=== PATIENT | female | born 1930 | race Caucasian/White ===

== ENCOUNTER 2017-08-02 10:40 | Observation (INO) | payer MEDICARE, BC ==
[2017-08-02] MEDS ORDERED: Sodium Chloride 0.9% 10 ML Syringe FLUSH PRN (10:52)
[2017-08-02] MEDS ORDERED: Ondansetron 4 MG/2 ML SDV IVPUSH ONE (11:16)
[2017-08-02] MEDS ORDERED: Meclizine 25 MG Tab PO ONE (11:16)
[2017-08-02] MEDS ORDERED: dimenhyDRINATE 50 MG Tab PO ONE (11:16)
[2017-08-02] MEDS ORDERED: Lactated Ringers 1,000 ML IV SCH (11:30)
[2017-08-02 12:14] LABS: CHLORIDE,CL 100 mmol/L (98-107); SODIUM,NA 137 mmol/L (136-145)
[2017-08-02] MEDS ORDERED: dimenhyDRINATE 50 MG Tab PO PRN (14:06)
[2017-08-02] MEDS ORDERED: Ondansetron 4 MG/2 ML SDV IVPUSH PRN (14:09)
[2017-08-02] MEDS: Lactated Ringers 1,000 ML IV SCH (15:25)
--- NOTE | 2017-08-02 17:58 | EDM.PDOC ---
ED HPI GENERAL MEDICAL PROBLEM - General Chief Complaint: General Stated Complaint: dizzy, forgetfulness Time Seen by Provider: 08/02/17 10:52 Source of Information: Reports: Patient, Family History Limitations: Reports: No Limitations - History of Present Illness INITIAL COMMENTS - FREE TEXT/NARRATIVE: PtSharon presents to ER with complaints of vertigo. She has been experiencing this for several months but it is worse today. She denies striking her head. She has been seen by ENT and they suggested vestibular therapy for BPPV. She has so far refused to do it, as she doesn't want to "move her head and get dizzy". She denies any chest pain or shortness of breath. No weakness. Denies any blurred vision, difficulty with speech or ambulation. Location: Reports: Generalized - Related Data Allergies Allergy/AdvReac Type Severity Reaction Status Date / Time adhesive tape Allergy Other Verified 08/02/17 10:55 azithromycin Allergy Other Verified 08/02/17 10:52 cephalexin Allergy Other Verified 08/02/17 10:55 Cephalosporins Allergy Other Verified 08/02/17 13:14 ciprofloxacin Allergy Other Verified 08/02/17 10:55 codeine Allergy Other Verified 08/02/17 10:55 doxycycline Allergy Other Verified 08/02/17 10:55 erythromycin base Allergy Other Verified 08/02/17 10:55 hydrocodone Allergy Other Verified 08/02/17 10:55 hydrocortisone Allergy Other Verified 08/02/17 10:55 lidocaine Allergy Other Verified 08/02/17 10:55 metformin Allergy Other Verified 08/02/17 10:55 oxymetazoline Allergy Other Verified 08/02/17 10:55 Penicillins Allergy Other Verified 08/02/17 10:55 piroxicam Allergy Other Verified 08/02/17 10:55 sulfamethoxazole Allergy Other Verified 08/02/17 10:55 zolpidem Allergy Other Verified 08/02/17 10:55 Home Meds: Home Meds Levothyroxine [Sythroid] 100 mcg PO DAILY 08/02/17 [History] Lisinopril/Hydrochlorothiazide [Zestoretic 20-12.5 mg Tablet] 12.5 mg PO DAILY 08/02/17 [History] Metoprolol Tartrate 50 mg PO BID 08/02/17 [History] Potassium Chloride 10 meq PO BID 08/02/17 [History] Trospium [Sanctura] 20 mg PO BID 08/02/17 [History] atorvaSTATin [Lipitor] 0.5 tab PO DAILY 08/02/17 [History] Past Medical History HEENT History: Reports: Allergic Rhinitis Cardiovascular History: Reports: High Cholesterol, Hypertension Genitourinary History: Reports: Other (See Below) Other Genitourinary History: Stage III chronic kidney disease Neurological History: Reports: Vertigo Other Neuro History: benign paroxysmal positional vertigo Psychiatric History: Reports: Anxiety, Depression Endocrine/Metabolic History: Reports: Diabetes, Type II, Hypothyroidism Social & Family History - Tobacco Use Smoking Status *Q: Never Smoker Second Hand Smoke Exposure: No - Caffeine Use Caffeine Use: Reports: Coffee - Recreational Drug Use Recreational Drug Use: No ED ROS GENERAL - Review of Systems Review Of Systems: See Below Constitutional: Reports: No Symptoms HEENT: Reports: No Symptoms Respiratory: Reports: No Symptoms Cardiovascular: Reports: No Symptoms Endocrine: Reports: No Symptoms GI/Abdominal: Reports: No Symptoms : Reports: No Symptoms Musculoskeletal: Reports: No Symptoms Skin: Reports: No Symptoms Neurological: Reports: No Symptoms Psychiatric: Reports: No Symptoms Hematologic/Lymphatic: Reports: Other Immunologic: Reports: No Symptoms ED EXAM, GENERAL - Physical Exam Exam: See Below Exam Limited By: No Limitations General Appearance: Alert, WD/WN, No Apparent Distress Eye Exam: Bilateral Eye: EOMI, Normal Fundi, Normal Inspection, PERRL Ears: Normal External Exam, Normal Canal, Hearing Grossly Normal, Normal TMs Ear Exam: Bilateral Ear: Auricle Normal, Canal Normal, TM normal Nose: Normal Inspection, Normal Mucosa, No Blood Throat/Mouth: Normal Inspection, Normal Lips, Normal Teeth, Normal Gums, Normal Oropharynx, Normal Voice, No Airway Compromise Head: Atraumatic, Normocephalic Neck: Normal Inspection, Supple, Non-Tender, Full Range of Motion Respiratory/Chest: No Respiratory Distress, Lungs Clear, Normal Breath Sounds, No Accessory Muscle Use, Chest Non-Tender Cardiovascular: Normal Peripheral Pulses, Regular Rate, Rhythm, No Edema, No Gallop, No JVD, No Murmur, No Rub Peripheral Pulses: 4+: Radial (L), Radial (R), Femoral (L), Femoral (R) GI/Abdominal: Normal Bowel Sounds, Soft, Non-Tender, No Organomegaly, No Distention, No Abnormal Bruit, No Mass (Female) Exam: Deferred Rectal (Female) Exam: Deferred Back Exam: Normal Inspection, Full Range of Motion, NT Extremities: Normal Inspection, Normal Range of Motion, Non-Tender, Normal Capillary Refill, No Pedal Edema Neurological: Alert, Oriented, CN II-XII Intact, Normal Cognition, Normal Gait, Normal Reflexes, No Motor/Sensory Deficits Psychiatric: Normal Affect, Normal Mood Skin Exam: Warm, Dry, Intact, Normal Color, No Rash Lymphatic: No Adenopathy EKG INTERPRETATION Rhythm: NSR [place]set: Normal P-Wave: Present QRS: Normal ST-T: Normal QT: Normal Course - Vital Signs Last Recorded V/S: Last Vital Signs Temp 36.7 C 08/02/17 16:22 Pulse 96 08/02/17 16:22 Resp 16 08/02/17 16:22 BP 140/70 08/02/17 16:22 Pulse Ox 93 L 08/02/17 16:22 - Orders/Labs/Meds Orders: Active Orders 24 hr Category Date Time Status Chest 1V Frontal [CR] Stat Exams 08/02/17 11:15 Taken Head wo Cont [CT] Stat Exams 08/02/17 11:14 Taken Sodium Chloride 0.9% [Saline Flush] Med 08/02/17 10:52 Active 10 ml FLUSH ASDIRECTED PRN Peripheral IV Insertion Adult [OM.PC] Routine Oth 08/02/17 11:13 Ordered Medication Orders Dimenhydrinate (Driminate) 50 mg PO Q4H PRN PRN Reason: Dizziness Lactated Ringer's (Ringers, Lactated) 1,000 mls @ 75 mls/hr IV ASDIRECTED [facility] Last Admin: 08/02/17 15:25 Dose: 75 mls/hr Meclizine HCl (Antivert) 25 mg PO BID PRN PRN Reason: Dizziness Ondansetron HCl (Zofran) 4 mg IVPUSH Q8H PRN PRN Reason: Nausea Sodium Chloride (Saline Flush) 10 ml FLUSH ASDIRECTED PRN PRN Reason: Keep Vein Open Labs: Laboratory Tests 08/02/17 08/02/17 08/02/17 Range/Units 11:25 11:25 11:25 WBC 6.4 (4.0-10.0) x10^3/uL RBC 4.10 (4.00-5.50) x10^6/uL Hgb 12.4 (12.0-16.0) g/dL Hct 37.3 (33.0-47.0) % MCV 91.0 (78.0-93.0) fL MCH 30.2 (26.0-32.0) pg MCHC 33.2 (32.0-36.0) g/dL RDW Coeff of Ban 14.3 (10.0-15.0) % Plt Count 180 (130-400) x10^3/uL Neut % (Auto) 68.5 (50.0-80.0) % Lymph % (Auto) 17.6 L (25.0-50.0) % [place] % (Auto) 8.6 (2.0-11.0) % Eos % (Auto) 4.8 H (0.0-4.0) % Baso % (Auto) 0.5 (0.2-1.2) % PT 11.2 (9.8-11.8) SEC INR 1.0 L (2.0-3.5) Sodium 137 (136-145) mmol/L Potassium 3.9 (3.5-5.1) mmol/L Chloride 100 (98-107) mmol/L Carbon Dioxide 26 (21-32) mmol/L Anion Gap 14.9 (10-20) mmol/L BUN 17 (7-18) mg/dL Creatinine 1.3 H (0.55-1.02) mg/dL Est Cr Clr Drug Dosing TNP Estimated GFR (MDRD) 39 Glucose 205 H (74-106) mg/dL Calcium 8.9 (8.5-10.1) mg/dL Corrected Calcium 9.54 (8.5-10.1) mg/dL Phosphorus 3.4 (2.6-4.7) mg/dL Magnesium 1.8 (1.8-2.4) mg/dL Total Bilirubin 0.7 (0.2-1.0) mg/dL AST 19 (15-37) U/L ALT 20 (14-59) U/L Alkaline Phosphatase 168 H (46-116) U/L Troponin I < 0.017 (<=0.056) ng/mL C-Reactive Protein 1.3 H (<=0.9) mg/dL Total Protein 6.8 (6.4-8.2) g/dL Albumin 3.2 L (3.4-5.0) g/dL Globulin 3.6 Albumin/Globulin Ratio 0.89 TSH, Ultra Sensitive 2.013 (0.358-3.74) uIU/mL Meds: Medications Generic Name Dose Route Start Last Admin Trade Name Freq PRN Reason Stop Dose Admin Dimenhydrinate 50 mg 08/02/17 14:06 Driminate PO Q4H PRN Dizziness Lactated Ringer's 1,000 mls @ 75 mls/hr 08/02/17 14:15 08/02/17 15:25 Ringers, Lactated IV 75 mls/hr ASDIRECTED JAMES Administration Meclizine HCl 25 mg 08/02/17 14:08 Antivert PO BID PRN Dizziness Ondansetron HCl 4 mg 08/02/17 14:09 Zofran IVPUSH Q8H PRN Nausea Sodium Chloride 10 ml 08/02/17 10:52 Saline Flush FLUSH ASDIRECTED PRN Keep Vein Open Discontinued Medications Generic Name Dose Route Start Last Admin Trade Name Freq PRN Reason Stop Dose Admin Dimenhydrinate 50 mg 08/02/17 11:16 08/02/17 11:24 Driminate PO 08/02/17 11:17 50 mg ONETIME ONE Administration Lactated Ringer's 1,000 mls @ 500 mls/hr 08/02/17 11:30 08/02/17 11:25 Ringers, Lactated IV 500 mls/hr ASDIRECTED JAMES Administration Meclizine HCl 25 mg 08/02/17 11:16 08/02/17 11:24 Antivert PO 08/02/17 11:17 25 mg ONETIME ONE Administration Ondansetron HCl 4 mg 08/02/17 11:16 08/02/17 11:25 Zofran IVPUSH 08/02/17 11:17 4 mg ONETIME ONE Administration - Radiology Interpretation Free Text/Narrative:: CT brain negative for acute pathology Departure - Departure Time of Disposition: 12:37 Disposition: Admitted As Inpatient 64 Clinical Impression: Dehydration, BPPV (benign paroxysmal positional vertigo) - Discharge Information - My Orders Last 24 Hours: My Active Orders 08/02/17 10:52 Sodium Chloride 0.9% [Saline Flush] 10 ml FLUSH ASDIRECTED PRN 08/02/17 11:13 Peripheral IV Insertion Adult [OM.PC] Routine 08/02/17 11:14 Head wo Cont [CT] Stat 08/02/17 11:15 Chest 1V Frontal [CR] Stat - Assessment/Plan Last 24 Hours: My Active Orders 08/02/17 10:52 Sodium Chloride 0.9% [Saline Flush] 10 ml FLUSH ASDIRECTED PRN 08/02/17 11:13 Peripheral IV Insertion Adult [OM.PC] Routine 08/02/17 11:14 Head wo Cont [CT] Stat 08/02/17 11:15 Chest 1V Frontal [CR] Stat
[2017-08-02] MEDS: Metoprolol Tartrate 50 MG Tab PO SCH (19:23)
[2017-08-02] MEDS: Potassium Chloride 10 MEQ Tab.ER PO SCH (19:25)
[2017-08-03] MEDS ORDERED: Ibuprofen 200 MG Tab PO STA (05:05)
[2017-08-03] MEDS: Lactated Ringers 1,000 ML IV SCH (05:16)
[2017-08-03] MEDS ORDERED: Levothyroxine 100 MCG Tab PO SCH (07:00)
[2017-08-03] MEDS: Metoprolol Tartrate 50 MG Tab PO SCH ×2 (07:19→19:43)
[2017-08-03] MEDS: Potassium Chloride 10 MEQ Tab.ER PO SCH ×2 (07:19→19:43)
[2017-08-03] MEDS: Hydrochlorothiazide 12.5 MG Cap PO SCH (07:20)
[2017-08-03] MEDS: atorvaSTATin 10 MG Tab PO SCH (07:20)
[2017-08-03] MEDS: Lisinopril 20 MG Tab PO SCH (07:20)
[2017-08-03] MEDS: Meclizine 25 MG Tab PO PRN ×2 (07:20→19:43)
[2017-08-03] MEDS ORDERED: Ondansetron 4 MG/2 ML SDV IVPUSH ONE (10:24)
[2017-08-03] MEDS ORDERED: Ondansetron 4 MG/2 ML SDV IVPUSH PRN (13:53)
[2017-08-03] MEDS: Metoclopramide 10 MG/2 ML SDV IVPUSH PRN (15:19)
--- NOTE | 2017-08-03 16:43 | PCM.PN ---
- General Info Date of Service: 08/03/17 Subjective Update: Pt. is feeling somewhat better today. Her Sanctura was stopped as this is an anticholinergic medication. She saw PT this AM and the Davis-Hallpike tests were positive bilaterally. PT did the Young maneuver with the pt. which did provoke vertigo nausea and vomiting. Pt. was given nausea zofran and with be worked with this afternoon from a vestibular standpoint. Pt. is eating. No vomiting or diarrhea. Functional Status: Reports: Pain Controlled - Review of Systems General: Reports: No Symptoms HEENT: Reports: No Symptoms Pulmonary: Reports: No Symptoms Cardiovascular: Reports: No Symptoms Gastrointestinal: Reports: No Symptoms Genitourinary: Reports: No Symptoms Musculoskeletal: Reports: No Symptoms Skin: Reports: No Symptoms Neurological: Reports: Other (positive sudheer-hallpike. Denies paresthesia or dysarthria.) Psychiatric: Reports: No Symptoms - Patient Data Vitals - Most Recent: Last Vital Signs Temp 36.6 C 08/03/17 13:54 Pulse 65 08/03/17 13:54 Resp 16 08/03/17 13:54 BP 125/58 L 08/03/17 13:54 Pulse Ox 93 L 08/03/17 13:54 Weight - Most Recent: 68.152 kg I&O - Last 24 Hours: Intake & Output 08/03/17 08/03/17 08/03/17 06:59 14:59 22:59 Intake Total 1352 660 Output Total 1400 100 900 Balance -48 560 -900 Lab Results Last 24 Hours: Laboratory Results - last 24 hr 08/02/17 08/03/17 08/03/17 Range/Units 16:30 06:40 06:40 WBC 7.1 (4.0-10.0) x10^3/uL RBC 3.58 L (4.00-5.50) x10^6/uL Hgb 10.9 L D (12.0-16.0) g/dL Hct 33.7 (33.0-47.0) % MCV 94.1 H D (78.0-93.0) fL MCH 30.4 (26.0-32.0) pg MCHC 32.3 (32.0-36.0) g/dL RDW Coeff of Ban 14.3 (10.0-15.0) % Plt Count 183 (130-400) x10^3/uL Neut % (Auto) 61.5 (50.0-80.0) % Lymph % (Auto) 25.0 (25.0-50.0) % [place] % (Auto) 8.7 (2.0-11.0) % Eos % (Auto) 4.5 H (0.0-4.0) % Baso % (Auto) 0.3 (0.2-1.2) % Sodium 139 (136-145) mmol/L Potassium 4.5 (3.5-5.1) mmol/L Chloride 104 (98-107) mmol/L Carbon Dioxide 30 (21-32) mmol/L Anion Gap 9.5 L (10-20) mmol/L BUN 15 (7-18) mg/dL Creatinine 1.2 H (0.55-1.02) mg/dL Est Cr Clr Drug Dosing 22.83 mL/min Estimated GFR (MDRD) 42 Glucose 155 H (74-106) mg/dL Calcium 8.5 (8.5-10.1) mg/dL Corrected Calcium 9.62 (8.5-10.1) mg/dL Total Bilirubin 0.6 (0.2-1.0) mg/dL AST 17 (15-37) U/L ALT 18 (14-59) U/L Alkaline Phosphatase 135 H (46-116) U/L Total Protein 5.7 L (6.4-8.2) g/dL Albumin 2.6 L (3.4-5.0) g/dL Globulin 3.1 Albumin/Globulin Ratio 0.84 Urine Color Yellow (YELLOW) Urine Appearance Slightly cloudy H (CLEAR) Urine pH 5.0 (5.0-8.0) Ur Specific [place] <=1.005 Urine Protein Negative (NEGATIVE) mg/dL Urine Glucose (UA) Negative (NEGATIVE) mg/dL Urine Ketones Negative (NEGATIVE) mg/dL Urine Occult Blood Trace-lysed H (NEGATIVE) Urine Nitrite Negative (NEGATIVE) Urine Bilirubin Negative (NEGATIVE) Urine Urobilinogen 0.2 (0.2) EU/dL Ur Leukocyte Esterase Trace H (NEGATIVE) Urine RBC 0-5 (NOT SEEN) /HPF Urine WBC 0-5 (NOT SEEN) /HPF Ur Squamous Epith Cells Few H (NEGATIVE) /HPF Amorphous Sediment Few Urine Bacteria Few H (NEGATIVE) /HPF Urine Mucus Rare H (NEGATIVE) /LPF Med Orders - Current: Current Medications Atorvastatin Calcium (Lipitor) 5 mg PO DAILY [facility] Last Admin: 08/03/17 07:20 Dose: 5 mg Dimenhydrinate (Driminate) 50 mg PO Q4H PRN PRN Reason: Dizziness Last Admin: 08/02/17 19:25 Dose: 50 mg Hydrochlorothiazide (Hydrochlorothiazide) 12.5 mg PO DAILY [facility] Last Admin: 08/03/17 07:20 Dose: 12.5 mg Levothyroxine Sodium (Synthroid) 100 mcg PO DAILY@0700 [facility] Lisinopril (Prinivil) 20 mg PO DAILY [facility] Last Admin: 08/03/17 07:20 Dose: 20 mg Meclizine HCl (Antivert) 25 mg PO BID PRN PRN Reason: Dizziness Last Admin: 08/03/17 07:20 Dose: 25 mg Metoclopramide HCl (Reglan) 5 mg IVPUSH Q4H PRN PRN Reason: Nausea/Vomiting Last Admin: 08/03/17 15:19 Dose: 5 mg Metoprolol Tartrate (Lopressor) 50 mg PO BID [facility] Last Admin: 08/03/17 07:19 Dose: 50 mg Ondansetron HCl (Zofran) 4 mg IVPUSH Q8H PRN PRN Reason: Nausea Ondansetron HCl (Zofran) 4 mg IVPUSH Q8H PRN PRN Reason: Nausea Potassium Chloride (Klor-Con 10) 10 meq PO BID [facility] Last Admin: 08/03/17 07:19 Dose: 10 meq Sodium Chloride (Saline Flush) 10 ml FLUSH ASDIRECTED PRN PRN Reason: Keep Vein Open Discontinued Medications Dimenhydrinate (Driminate) 50 mg PO ONETIME ONE Stop: 08/02/17 11:17 Last Admin: 08/02/17 11:24 Dose: 50 mg Lactated Ringer's (Ringers, Lactated) 1,000 mls @ 500 mls/hr IV ASDIRECTED [facility] Last Admin: 08/02/17 11:25 Dose: 500 mls/hr Lactated Ringer's (Ringers, Lactated) 1,000 mls @ 75 mls/hr IV ASDIRECTED [facility] Last Admin: 08/03/17 05:16 Dose: 75 mls/hr Ibuprofen (Motrin) 400 mg PO ONETIME STA Stop: 08/03/17 05:06 Last Admin: 08/03/17 05:19 Dose: 400 mg Levothyroxine Sodium (Synthroid) 100 mcg PO ACBRK JAMES Last Admin: 08/03/17 06:27 Dose: 100 mcg Meclizine HCl (Antivert) 25 mg PO ONETIME ONE Stop: 08/02/17 11:17 Last Admin: 08/02/17 11:24 Dose: 25 mg Ondansetron HCl (Zofran) 4 mg IVPUSH ONETIME ONE Stop: 08/02/17 11:17 Last Admin: 08/02/17 11:25 Dose: 4 mg Ondansetron HCl (Zofran) 4 mg IVPUSH ONETIME ONE Stop: 08/03/17 10:25 Last Admin: 08/03/17 10:40 Dose: 4 mg - Exam Quality Assessment: No: Skin Breakdown General: Alert, Oriented HEENT: Pupils Equal, Pupils Reactive, EOMI, Mucous Membr. Moist/[place] Neck: Supple Lungs: Clear to Auscultation, Normal Respiratory Effort Cardiovascular: Regular Rate, Regular Rhythm GI/Abdominal Exam: Normal Bowel Sounds, Soft, Non-Tender, No Organomegaly, No Distention, No Abnormal Bruit, No Mass, Pelvis Stable (Female) Exam: Deferred Back Exam: Normal Inspection, Full Range of Motion Extremities: Normal Inspection, Normal Range of Motion, Non-Tender, No Pedal Edema, Normal Capillary Refill Peripheral Pulses: 4+: Radial (L), Radial (R) Skin: Warm, Dry, Intact Neurological: No New Focal Deficit Psy/Mental Status: Alert, Normal Affect, Normal Mood - Problem List & Annotations (1) BPPV (benign paroxysmal positional vertigo) SNOMED Code(s): 770759827 Code(s): H81.10 - BENIGN PAROXYSMAL VERTIGO, UNSPECIFIED EAR Status: Acute Current Visit: Yes (2) CKD (chronic kidney disease) stage 3, GFR 30-59 ml/min SNOMED Code(s): 961367128 Code(s): N18.3 - CHRONIC KIDNEY DISEASE, STAGE 3 (MODERATE) Status: Chronic Current Visit: Yes - Problem List Review Problem List Initiated/Reviewed/Updated: Yes - My Orders Last 24 Hours: My Active Orders 08/02/17 20:00 Metoprolol Tartrate [Lopressor] 50 mg PO BID Potassium Chloride [Klor-Con 10] 10 meq PO BID 08/02/17 Dinner Regular Diet [DIET] 08/03/17 08:00 Hydrochlorothiazide 12.5 mg PO DAILY Lisinopril [Prinivil] 20 mg PO DAILY atorvaSTATin [Lipitor] 5 mg PO DAILY 08/03/17 13:52 Metoclopramide [Reglan] 5 mg IVPUSH Q4H PRN 08/03/17 13:53 Ondansetron [Zofran] 4 mg IVPUSH Q8H PRN 08/04/17 07:00 Levothyroxine [Synthroid] 100 mcg PO DAILY@0700 - Assessment Assessment:: BPPV - Plan Plan:: Anticipate discharge tomorrow. PT will work with pt. this afternoon and tomorrow. We will premedicate the pt. with zofran or reglan prior to therapy. Will continue with reglan and zofran for nausea and dimenhydrinate and meclizine for vertigo. Discussed findings with family and pt. at length.
[2017-08-04] MEDS ORDERED: Levothyroxine 100 MCG Tab PO SCH (07:00)
[2017-08-04] MEDS: Metoprolol Tartrate 50 MG Tab PO SCH (07:51)
[2017-08-04] MEDS: Metoclopramide 10 MG/2 ML SDV IVPUSH PRN (07:51)
[2017-08-04] MEDS: Hydrochlorothiazide 12.5 MG Cap PO SCH (07:51)
[2017-08-04] MEDS: atorvaSTATin 10 MG Tab PO SCH (07:51)
[2017-08-04] MEDS: Potassium Chloride 10 MEQ Tab.ER PO SCH (07:51)
[2017-08-04] MEDS: Lisinopril 20 MG Tab PO SCH (07:52)
--- NOTE | 2017-08-04 10:45 | PCM.DCSUM1 ---
Discharge Summary - Hospital Course HPI Initial Comments: Pt. presented to ER two days ago with complaints of vertigo. She has been experiencing this for one month since she increased her bladder medication, but it is worse today. She denies and head injury or trauma. She has been seen by ENT and they suggested vestibular therapy for BPPV. She has so far refused to do it, as she doesn't want to "move her head and get dizzy". She denies any chest pain or shortness of breath. No weakness. Denies any blurred vision, difficulty with speech or ambulation. Patient had her bladder medication increased about one month ago. She also had her Metformin stopped due to diarrhea. - Discharge Data Discharge Date: 08/04/17 Discharge Disposition: Home, Self-Care 01 Condition: Good - Discharge Diagnosis/Problem(s) (1) BPPV (benign paroxysmal positional vertigo) SNOMED Code(s): 611678860 ICD Code: H81.10 - BENIGN PAROXYSMAL VERTIGO, UNSPECIFIED EAR Status: Acute Priority: High Current Visit: Yes Qualifiers: Laterality: bilateral Qualified Code(s): H81.13 - Benign paroxysmal vertigo , bilateral (2) Dehydration SNOMED Code(s): 14125000 ICD Code: E86.0 - DEHYDRATION Status: Acute Priority: Medium Current Visit: Yes (3) DM2 (diabetes mellitus, type 2) SNOMED Code(s): 74931672 ICD Code: E11.9 - TYPE 2 DIABETES MELLITUS WITHOUT COMPLICATIONS Status: Chronic Current Visit: No Qualifiers: Diabetes mellitus [employer] 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 Diabetes mellitus complication status: with kidney complications Diabetes mellitus complication detail: with chronic kidney disease Chronic kidney disease stage : unspecified stage Qualified Code(s): E11.22 - Type 2 diabetes mellitus with diabetic chronic kidney disease (4) CKD (chronic kidney disease) stage 3, GFR 30-59 ml/min SNOMED Code(s): 172009172 ICD Code: N18.3 - CHRONIC KIDNEY DISEASE, STAGE 3 (MODERATE) Status: Chronic Current Visit: No (5) Hypertension SNOMED Code(s): 78028762 ICD Code: I10 - ESSENTIAL (PRIMARY) HYPERTENSION Status: Chronic Current Visit: No Qualifiers: Hypertension type: essential hypertension Qualified Code(s): I10 - Essential (primary) hypertension (6) Hypothyroid SNOMED Code(s): 34367225 ICD Code: E03.9 - HYPOTHYROIDISM, UNSPECIFIED Status: Chronic Current Visit: No Qualifiers: Hypothyroidism type: acquired Qualified Code(s): E03.9 - Hypothyroidism, unspecified (7) Hypercholesterolemia SNOMED Code(s): 86606562 ICD Code: E78.00 - PURE HYPERCHOLESTEROLEMIA, UNSPECIFIED Status: Chronic Current Visit: No - Patient Summary/Data Operative Procedure(s) Performed: None Consults: Consultations 08/02/17 14:09 PT Evaluation and Treatment [CONS] Routine Labs Pending at D/C: None Recommended Follow-up Testing/Procedures: BPPV/Vestibular rehab with Physical Therapy Planned Operative Procedure(s) after DC: None Hospital Course: Overall, patient remained stable. She received IVF on admission. She also got Meclizine and Dramamine which seemed to help with her dizziness. She did very well with Physical therapy. No falls. No issues with urination or BM's. Tolerated diet ok. VSS. Afebrile. - Patient Instructions Diet: Diabetic Diet Activity: No Strenuous Activities, Rest and Relax Today Driving: Do Not Drive Showering/Bathing: May Shower Notify Provider of: Fever, Increased Pain, Swelling and Redness, Nausea and/or Vomiting Other/Special Instructions: worsening dizziness - Discharge Plan Prescriptions/Med Rec: Meclizine [Antivert] 1 tab PO BID PRN 5 Days #10 tablet PRN Reason: Dizziness Home Medications: Home Meds Levothyroxine [Synthroid] 100 mcg PO DAILY 08/02/17 [History] Lisinopril/Hydrochlorothiazide [Zestoretic 20-12.5 mg Tablet] 1 tab PO DAILY [History] Metoprolol Tartrate 50 mg PO BID 08/02/17 [History] Potassium Chloride 10 meq PO BIDMEALS 08/02/17 [History] Trospium [Sanctura] 20 mg PO BID 08/02/17 [History] atorvaSTATin [Lipitor] 5 mg PO DAILY 08/02/17 [History] Meclizine [Antivert] 1 tab PO BID PRN 5 Days #10 tablet 08/04/17 [Rx] Patient Handouts: Dizziness, [id number], Vertigo, [id number] Referrals: Ina Tello NP [Primary Care Provider] - 08/07/17 11:00 am - Discharge Summary/Plan Comment DC Time >30 min.: Yes Discharge Summary/Plan Comment: Patient will be discharged home today into the care of her niece. No changes with any home medications. She will continue to see Physical therapy as outpatient. Patient will have a follow up appointment with her PCP this Thursday at 11am for a recheck. - General Info Date of Service: 08/04/17 Admission Dx/Problem (Free Text: BPPV Dehydration Functional Status: Reports: Pain Controlled, Tolerating Diet, Ambulating, Urinating - Review of Systems General: Denies: Fever, Weakness, Chills HEENT: Denies: Visual Changes Pulmonary: Denies: Shortness of Breath, Cough Cardiovascular: Denies: Chest Pain, Palpitations Gastrointestinal: Denies: Abdominal Pain, Nausea, Vomiting Skin: Reports: No Symptoms Neurological: Denies: Dizziness, Headache - Patient Data Vitals - Most Recent: Last Vital Signs Temp 36.6 C 08/04/17 05:57 Pulse 77 08/04/17 07:51 Resp 16 08/04/17 05:57 BP 131/56 L 08/04/17 07:51 Pulse Ox 93 L 08/04/17 05:57 Weight - Most Recent: 68.152 kg I&O - Last 24 hours: Intake & Output 08/03/17 08/04/17 08/04/17 22:59 06:59 14:59 Intake Total 1230 560 180 Output Total 900 1450 Balance 330 -890 180 Med Orders - Current: Current Medications Atorvastatin Calcium (Lipitor) 5 mg PO DAILY [facility] Last Admin: 08/04/17 07:51 Dose: 5 mg Dimenhydrinate (Driminate) 50 mg PO Q4H PRN PRN Reason: Dizziness Last Admin: 08/02/17 19:25 Dose: 50 mg Hydrochlorothiazide (Hydrochlorothiazide) 12.5 mg PO DAILY [facility] Last Admin: 08/04/17 07:51 Dose: 12.5 mg Levothyroxine Sodium (Synthroid) 100 mcg PO DAILY@0700 [facility] Last Admin: 08/04/17 06:00 Dose: 100 mcg Lisinopril (Prinivil) 20 mg PO DAILY [facility] Last Admin: 08/04/17 07:52 Dose: 20 mg Meclizine HCl (Antivert) 25 mg PO BID PRN PRN Reason: Dizziness Last Admin: 08/03/17 19:43 Dose: 25 mg Metoclopramide HCl (Reglan) 5 mg IVPUSH Q4H PRN PRN Reason: Nausea/Vomiting Last Admin: 08/04/17 07:51 Dose: 5 mg Metoprolol Tartrate (Lopressor) 50 mg PO BID [facility] Last Admin: 08/04/17 07:51 Dose: 50 mg Ondansetron HCl (Zofran) 4 mg IVPUSH Q8H PRN PRN Reason: Nausea Ondansetron HCl (Zofran) 4 mg IVPUSH Q8H PRN PRN Reason: Nausea Potassium Chloride (Klor-Con 10) 10 meq PO BID [facility] Last Admin: 08/04/17 07:51 Dose: 10 meq Sodium Chloride (Saline Flush) 10 ml FLUSH ASDIRECTED PRN PRN Reason: Keep Vein Open Last Admin: 08/03/17 19:45 Dose: 10 ml Discontinued Medications Dimenhydrinate (Driminate) 50 mg PO ONETIME ONE Stop: 08/02/17 11:17 Last Admin: 08/02/17 11:24 Dose: 50 mg Lactated Ringer's (Ringers, Lactated) 1,000 mls @ 500 mls/hr IV ASDIRECTED [facility] Last Admin: 08/02/17 11:25 Dose: 500 mls/hr Lactated Ringer's (Ringers, Lactated) 1,000 mls @ 75 mls/hr IV ASDIRECTED [facility] Last Admin: 08/03/17 05:16 Dose: 75 mls/hr Ibuprofen (Motrin) 400 mg PO ONETIME STA Stop: 08/03/17 05:06 Last Admin: 08/03/17 05:19 Dose: 400 mg Levothyroxine Sodium (Synthroid) 100 mcg PO ACBRK [facility] Last Admin: 08/03/17 06:27 Dose: 100 mcg Meclizine HCl (Antivert) 25 mg PO ONETIME ONE Stop: 08/02/17 11:17 Last Admin: 08/02/17 11:24 Dose: 25 mg Ondansetron HCl (Zofran) 4 mg IVPUSH ONETIME ONE Stop: 08/02/17 11:17 Last Admin: 08/02/17 11:25 Dose: 4 mg Ondansetron HCl (Zofran) 4 mg IVPUSH ONETIME ONE Stop: 08/03/17 10:25 Last Admin: 08/03/17 10:40 Dose: 4 mg - Exam General: Reports: Alert, Oriented, Cooperative, No Acute Distress HEENT: Reports: Pupils Equal, Pupils Reactive Lungs: Reports: Clear to Auscultation, Normal Respiratory Effort Cardiovascular: Reports: Regular Rate, Regular Rhythm GI/Abdominal Exam: Normal Bowel Sounds, Soft, Non-Tender Skin: Reports: Warm, Dry, Intact Neurological: Reports: No New Focal Deficit *Q Meaningful Use (DIS) - VTE *Q VTE Mechanical Contraindications *Q: At Risk for Falls
== END 2017-08-04 11:15 | disposition home or self-care (01) ==
LOC: VM.ED 10:40 → VM.MS 12:37
PROVIDERS: ADMIT Physician Assistant; ATTEND Physician Assistant
DX: H81.13 Benign paroxysmal vertigo, bilateral (principal); E86.0 Dehydration; E11.22 Type 2 diabetes mellitus with diabetic chronic kidney disease; I12.9 Hypertensive chronic kidney disease with stage 1 through stage 4 chronic kidney disease, or unspecified chronic kidney disease; N18.3 Chronic kidney disease, stage 3 (moderate); E03.9 Hypothyroidism, unspecified; E78.00 Pure hypercholesterolemia, unspecified; Z79.899 Other long term (current) drug therapy; Z88.0 Allergy status to penicillin; Z88.1 Allergy status to other antibiotic agents; Z88.2 Allergy status to sulfonamides; Z88.8 Allergy status to other drugs, medicaments and biological substances; Z91.09 Other allergy status, other than to drugs and biological substances
CPT/HCPCS: 36415; 70450; 71045; 80053; 81001; 83735; 84100; 84443; 84484; 85025; 85610; 86140; 93005; 93010; 96361; 96374; 96375; 96376; 97116-GP; 97140-GP; 97162-GP; 99217; 99220; 99225; 99284-GF; 99285; A9270-GY; G0378; J2405; J2765; J7050; J7120